=== PATIENT | male | born 1960 | race Caucasian/White ===

== ENCOUNTER 2020-06-15 20:37 | Emergency (ER) | payer OTHER ==
[~2020-06-15] VITALS: Ht 172.7 cm; Wt 74.8 kg
[~2020-06-15 20:37] MED LIST: ASA325 MG PO; ATENOLOL25 MG PO; LISINOPRIL2.5 MG PO
== END 2020-06-16 00:36 | disposition home or self-care (01) ==
LOC: ER 20:37
DX: M79.671 Pain in right foot (principal); M25.571 Pain in right ankle and joints of right foot; M54.6 Pain in thoracic spine; M54.2 Cervicalgia